=== PATIENT | female | born 1990 | race Caucasian/White ===

== ENCOUNTER 2021-05-12 17:44 | Emergency (ER) | payer BC, SELFPAY ==
[2021-05-12 17:45] VITALS: BP 137/87; PULSE 71; RESP 16; TEMP 36.8; O2SAT 100; BMI 28.6
--- NOTE | 2021-05-12 18:26 | HMH.EDGENADL ---
ED Disposition Clinical Impression: Vertigo, Viral illness Disposition: Home, Self-Care Condition on Discharge: Good Instructions: DI for Vertigo, DI for Benign Paroxysmal Positional Vertigo Prescriptions: Meclizine HCl [Meclizine 25mg Tab] 25 mg PO Q6 PRN #20 tab PRN Reason: Vertigo Transmission Status: Pending to [facility]/pharmacy #[id number] Scopolamine 1 each TD DIRECTED PRN #3 patch PRN Reason: Vertigo Transmission Status: Pending to [facility]/pharmacy #[id number] Referrals: Jose Guadalupe Thakkar MD [Primary Care Provider] - Time of Disposition: 20:13 - Critical Care Critical Care Time: No Attestation: On 05/12/21, the high probability of a clinically significant, sudden or life threatening deterioration of the following system(s) required my full and direct attention, intervention and personal management. The time I documented below is in addition to time spent performing reported procedures but includes the following listed in this critical care notation. Medical Decision Making - Medical Records Medical records reviewed: Yes: I reviewed the patient's medical records. - Julian Inquiry Pt receiving controlled substance: No Vital Signs: 05/12/21 17:45 Temperature 98.3 F Temperature Source Oral Pulse Rate [Right Radial] 71 Respiratory Rate 16 Blood Pressure [Right Arm] 137/87 Blood Pressure Mean [Right Arm] 103 Blood Pressure Source [Right Arm] Automatic Cuff Blood Pressure Position [Right Arm] Sitting 02 Sat by Pulse Oximetry 100 Oxygen Delivery Method Room Air - Lab Data Lab Results 05/12/21 19:04: WBC 7.8, RBC 4.27, Hgb 13.3, Hct 39.9, MCV 93.5, MCH 31.2, MCHC 33.3, RDW 12.9, Plt Count 304, MPV 8.8, Neut % (Auto) 59.5, Lymph % (Auto) 32.0, [place] % (Auto) 5.5, Eos % (Auto) 2.2, Baso % (Auto) 0.9, Neut # (Auto) 4.7, Lymph # (Auto) 2.5, [place] # (Auto) 0.4, Eos # (Auto) 0.2, Baso # (Auto) 0.1 05/12/21 19:04: Sodium 144, Potassium 3.6, Chloride 108 H, Carbon Dioxide 24, Anion Gap 15.6 H, BUN 10, Creatinine 0.60, Estimated Creat Clear 175, Estimated GFR 115, Est GFR ( Amer) 139, Glucose 80, Calcium 9.2, Total Bilirubin 0.3, AST 25, ALT 14, Alkaline Phosphatase 79, Total Protein 7.9, Albumin 4.8, Globulin 3.1, Albumin/Globulin Ratio 1.5 Result diagrams: 05/12/21 19:04 05/12/21 19:04 Orders (Tests/Meds): ED MEDICATIONS Generic Name Dose Route Start Last Admin Trade Name Freq PRN Reason Stop Dose Admin Sodium Chloride 1,000 mls @ 999 mls/hr 05/12/21 18:00 05/12/21 19:24 Sod Chlor 0.9% 1000ml Bag IV 05/12/21 19:00 999 mls/hr .Q1H1M QUIANA Administration Sodium Chloride 10 ml 05/12/21 17:56 Sodium Chloride 0.9% 10ml Vial IV 06/11/21 17:55 NEEDED PRN to Dilute Lorazepam inj Discontinued Medications Generic Name Dose Route Start Last Admin Trade Name Freq PRN Reason Stop Dose Admin Lorazepam 0.5 mg 05/12/21 17:56 05/12/21 19:24 Lorazepam 2mg/Ml Vial IV 05/12/21 17:57 0.5 mg ONCE ONE Administration Meclizine HCl 25 mg 05/12/21 17:55 05/12/21 19:24 Meclizine 25mg Tablet PO 05/12/21 17:56 25 mg ONCE ONE Administration ORDERS Category Date Time Status Urinalysis and Microscopic Stat Lab 05/12/21 17:55 Ordered Urine , HCG Qual. Stat Lab 05/12/21 17:55 Ordered Medical Decision Narrative: In summary this is a 31-year-old female presenting to the emergency department with lightheadedness, weakness, generalized malaise. Patient clinically stable on arrival. Vital signs within normal limits. She has inducible left beating nystagmus on my exam. Most likely diagnosis is peripheral vertigo. Will obtain CBC, CMP, urinalysis, test, Covid test. Patient given IV fluids, Ativan, meclizine Initial laboratory results remarkable for elevated anion gap at 16. Otherwise laboratory results are reassuring. On reassessment, after medication patient said she felt almost entirely better. She was able to open her eyes and not feel nause
[2021-05-12 19:19] LABS: Basophils # 0.1 K/mm3 (0-0.2); Basophils % 0.9 % (0.1-2.0); Eosinophils # 0.2 K/mm3 (0.0-0.4); Eosinophils % 2.2 % (0.1-12.0); Hematocrit 39.9 % (37.0-47.0); Hemoglobin 13.3 g/dL (12.2-16.2); Lymphocytes # 2.5 K/mm3 (0.7-4.5); Mean Corpuscular HGB Conc 33.3 g/dL (31.8-35.4); Mean Corpuscular Hemoglobin 31.2 pg (27.0-31.2); Mean Corpuscular Volume 93.5 fl (81-99); Mean Platelet Volume 8.8 fl (7.4-10.4); Monocytes # 0.4 K/mm3 (0.1-1.0); Monocytes % 5.5 % (1.7-9.3); Neutrophils # 4.7 K/mm3 (1.8-7.8); Neutrophils % 59.5 % (37.0-80.0); Platelet Count 304 K/mm3 (142-424); Red Blood Count 4.27 M/mm3 (4.20-5.40); Red Cell Distribution Width 12.9 % (11.5-17.5); White Blood Count 7.8 K/mm3 (4.8-10.8)
[2021-05-12 19:25] LABS: Alanine Aminotransferase 14 U/L (12-78); Albumin Level 4.8 g/dl (3.5-5.0); Albumin/Globulin Ratio 1.5 (1.1-1.8); Alkaline Phosphatase 79 U/L (38-126); Anion Gap 15.6 mEq/L (5-15); Aspartate Amino Transferase 25 U/L (14-36); Bilirubin,Total 0.3 mg/dl (0.2-1.3); Blood Urea Nitrogen 10 mg/dl (7-17); Calcium 9.2 mg/dl (8.4-10.2); Carbon Dioxide 24 mmol/L (22.0-30.0); Chloride 108 mmol/L (98-107); Creatinine Clearance Estimated 175 mL/min (50-200); Estimated Glomerular Filt Rate 115 ml/min (>60); GFR (African American) 139 ML/MIN (>60); Globulin 3.1 g/dL (1.3-3.2); Glucose 80 mg/dl (74-100); Potassium 3.6 mmoL/L (3.5-5.1); Sodium 144 mmol/L (136-145); Total Protein,Serum 7.9 g/dl (6.3-8.2)
[2021-05-12 20:31] VITALS: BP 134/71; PULSE 71; RESP 16; TEMP 36.7; O2SAT 100
== END 2021-05-12 20:34 | disposition home or self-care (01) ==
PROVIDERS: Emergency Provider Emergency Medicine; PCP Family Medicine
DX: B34.9 Viral infection, unspecified (principal); R42 Dizziness and giddiness
CPT/HCPCS: 80053; 85025; 96365; 96375; 99282

== ENCOUNTER 2021-05-19 10:17 | Outpatient (RCR) | payer BC, SELFPAY ==
--- NOTE | 2021-05-19 11:54 | HMH.PTOPEV ---
PT Outpatient Evaluation Rehab PT Outpatient Evaluation Start: 05/19/21 11:44 Freq: Status: Active Protocol: Document 05/19/21 11:45 PHORNE (Rec: 05/19/21 11:54 PHORNE [id number]) Electronically Signed By Ryan Chaney, PT 05/19/21 11:45 Outpatient Therapy Subjective History Subjective History Pt is 31 yowf who presents with c/o vertigo/dizziness/ nausea x ~ 1 mo after likely COVID-19 infection. She reports worse symptoms with standing and decreased symptoms with laying supine. She reports decreased endurance with all activity and this has resulted in significant fatigue and much more time laying. She has no hx of previous ear infections, but has recently been treated for dehydration related to the recent COVID-19 infection. She reports when she has symptoms they begin slowly and If I lay flat for 20-30 mins I feel better. She did show increased symptoms with Head- shake testing and VOR cancellation testing, but no nystagmus noted. Increased pain significantly on the L side with aural fullness testing and decreased hearing with finger rub test on the L side. She reports tinnitus in both ears, worse on the L. Chief Complaint Other Symptoms Aggravated By Standing,Physical Activity Prior Functional Limitations None Current Functional Limitations Housework,Driving,Sleeping, Standing,Recreation Activity Symptom Description Constant but Variable,Activity Dependent Balance Eval Nystagmus Nystagmus Presence None Oculomotor Gaze Oculomotor Gaze Nml: Vergence Smooth Pursuit Saccades Cover/Uncover Cross Cover Abn: VOR Cancellation Outpatient Therapy Assessment Impairments Problems/Impairmments Impaired Endurance,Impaired Walking,Impa
== END 2021-05-19 10:20 | disposition home or self-care (01) ==
LOC: PT 10:17
PROVIDERS: PCP Family Medicine; Visit Provider Internal Medicine Adolescent Medicine
DX: R42 Dizziness and giddiness (principal)
CPT/HCPCS: 97163

== ENCOUNTER → 2021-06-13 07:48 | Outpatient (CLI) | payer BC, SELFPAY ==
--- NOTE | 2021-06-13 07:53 | MR_ITS ---
PROCEDURE INFORMATION: Exam: MR Head Without Contrast Exam date and time: 06/13/2021 7:53 AM Age: 31 years old Clinical indication: Dizziness TECHNIQUE: Imaging protocol: MR of the head without contrast. COMPARISON: No relevant prior studies available. FINDINGS: Brain: Normal. No acute infarct. No hemorrhage. No significant white matter disease. No edema. Cerebral ventricles: Normal. No ventriculomegaly. Bones/joints: Unremarkable. Paranasal sinuses: Normal as visualized. No acute sinusitis. Mastoid air cells: Normal as visualized. No mastoid effusion. Orbital cavity: Unremarkable. Soft tissues: Unremarkable. IMPRESSION: Normal non-contrast brain MRI.
== END ==
PROVIDERS: PCP Internal Medicine Adolescent Medicine; Visit Provider Internal Medicine Adolescent Medicine
DX: R42 Dizziness and giddiness (principal)
CPT/HCPCS: 70551